=== PATIENT | female | born 1965 | race American Indian/Alaskan Native ===

== ENCOUNTER 2017-11-15 22:51 | Emergency (ER) | payer BC ==
[2017-11-16 00:10] VITALS: RESP 20; O2SAT 97
--- NOTE | 2017-11-16 01:30 | C.PDOC ---
History Of Present Illness 52 year old female presents to the ED c/o right foot pain. Patient states that she misstepped and twisted her right foot last week. Patient states pain persisted. Patient reports she took Advil at home with minimal relief. Patient denies new injury, fall, trauma, CP, SOB, weakness, numbness. Time Seen by Provider: 11/16/17 00:15 Chief Complaint (Nursing): Lower Extremity Problem/Injury History Per: Patient History/Exam Limitations: no limitations Onset/Duration Of Symptoms: Days Current Symptoms Are (Timing): Still Present Recent travel outside of the [place]: No Additional History Per: Patient - Ankle/Foot Description Of Injury: Twisted Past Medical History Reviewed: Historical Data, Nursing Documentation, Vital Signs Vital Signs: Last Vital Signs Temp 98 F 11/16/17 01:38 Pulse 82 11/16/17 01:38 Resp 20 11/16/17 01:38 BP 152/83 H 11/16/17 01:38 Pulse Ox 97 11/16/17 02:09 - Medical History PMH: No Chronic Diseases Surgical History: No Surg Hx Family History: States: Unknown Family Hx - Social History Hx Alcohol Use: No Hx Substance Use: No - Immunization History Hx Tetanus Toxoid Vaccination: No Hx Influenza Vaccination: No Hx Pneumococcal Vaccination: No Review Of Systems Constitutional: Negative for: Fever, Chills Cardiovascular: Negative for: Chest Pain Respiratory: Negative for: Shortness of Breath Gastrointestinal: Negative for: Nausea, Vomiting Musculoskeletal: Positive for: Foot Pain Skin: Negative for: Rash Neurological: Negative for: Weakness, Numbness Physical Exam - Physical Exam Appears: Non-toxic, No Acute Distress Skin: Normal Color, Warm, Dry Head: Atraumatic, Normacephalic Eye(s): bilateral: Normal Inspection Neck: Normal ROM, Supple Extremity: Normal ROM, Tenderness (right foot 1st MCP), Capillary Refill (< 2 seconds), No Deformity, No Swelling Pulses: Left Dorsalis Pedis: Normal, Right Dorsalis Pedis: Normal Neurological/Psych: Oriented x3, Normal Speech, Normal Motor, Normal Sensation Gait: Steady ED Course And Treatment O2 Sat by Pulse Oximetry: 97 (ON RA) Pulse Ox Interpretation: Normal - Other Rad Right foot X-Ray X-Ray: Interpreted by Me, Viewed By Me Interpretation: No fracture or dislocation seen Progress Note: Plan: - Right foot X-Ray. Patient was placed on an orthopedic shoe for support and was advised to follow up with podiatry. Pt ambulatory at discharge Disposition - Disposition Referrals: Meron Wilcox DPM [[facility]] - Podiatry Clinic [Outside] Disposition: HOME/ ROUTINE Disposition Time: :27 Condition: STABLE Additional Instructions: Continue advill for pain Use shoe for support Follow up with PMD / Podiatry Return if worse Instructions: Foot Sprain (ED) Forms: [employer] [facility] (Colombian) - Clinical Impression Clinical Impression: Right foot sprain - PA / [employer] / Resident Statement MD/DO has reviewed & agrees with the documentation as recorded. - Scribe Statement The provider has reviewed the documentation as recorded by the Scribe Lucho Carrillo All medical record entries made by the Scribe were at my direction and personally dictated by me. I have reviewed the chart and agree that the record accurately reflects my personal performance of the history, physical exam, medical decision making, and the department course for this patient. I have also personally directed, reviewed, and agree with the discharge instructions and disposition.
[2017-11-16 01:39] VITALS: BP 152/83; PULSE 82; TEMP 98
--- NOTE | 2017-11-16 09:14 | RAD ---
Date of service: 11/16/2017 PROCEDURE: Right Foot Radiographs. HISTORY: r/o fx COMPARISON: None. FINDINGS: BONES: Bone alignment and mineralization are normal. There is no acute displaced fracture or bone destruction. JOINTS: Normal. SOFT TISSUES: Normal. OTHER FINDINGS: None. IMPRESSION: No acute fracture or dislocation.
== END 2017-11-16 01:38 | disposition home or self-care (01) ==
LOC: C.ER 22:51
DX: S93.601A Unspecified sprain of right foot, initial encounter (principal); X50.9XXA Other and unspecified overexertion or strenuous movements or postures, initial encounter